=== PATIENT | female | born 1950 | race African-American/Black ===

== ENCOUNTER 2023-02-09 17:51 | Emergency (ER) | payer SELFPAY ==
--- NOTE | ~2023-02-09 | XR_ITS ---
EXAMINATION: XR ankle LT min 3V DATE: 02/09/2023 19:09 INDICATION: Left ankle pain post fall TECHNIQUE: Anteroposterior, oblique, mortise, and lateral views of the left ankle were obtained. COMPARISON: None. FINDINGS: Chronic left hindfoot arthrodesis with fusion across the subtalar, calcaneocuboid and talonavicular j oints. There is a prominent corticated ossicle along the anterolateral margin of the tip of the later al malleolus which could represent either a chronic nonunited avulsion fracture fragment or heterotop ic ossification related to prior ligament sprain. There appears to be osseous fusion across the synde smosis at the distal tibia and fibula. No acute fracture identified. Polyarticular osteoarthritis, mi ld to moderate severity at the ankle joint and at multiple joints in the midfoot. There is prominent soft tissue swelling about the ankle and over the dorsum of the mid and hindfoot. Increased density a nterior to the tibiotalar joint line suggesting presence of an ankle joint effusion. IMPRESSION: 1. Possible left ankle joint effusion with no evident acute osseous abnormality. 2. Chronic left hindfoot arthrodesis. 3. 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 4. 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 Reviewed, dictated and finalized at location A. IMPRESSION: 1. Possible left ankle joint effusion with no evident acute osseous abnormality . 2. Chronic left hindfoot arthrodesis. 3. Chronic nonunited avulsion fracture of the tip of the lateral malleolus vers us heterotopic ossicles related to chronic lateral ankle sprain. 4. 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
[2023-02-09 18:12] VITALS: BP 233/108; PULSE 102; RESP 18; TEMP 36.7; O2SAT 96
--- NOTE | 2023-02-09 19:00 | ED.EXTPRO ---
HPI - Extremity Problem General Chief complaint: Extremity Problem,Nontraumatic Stated complaint: left leg pain Time Seen by Provider: 02/09/23 18:11 History of Present Illness HPI Narrative: Patient is a 73-year-old female presenting with left ankle pain. 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 States that she has had worsening pain in the ankle for many years. States that she has been concerned that she has postpolio syndrome so she has not gone to see a doctor because she has been scared. States that its been many years since she seen a doctor. States that her pain has been worsening over the last week to the point that it is difficult for her to bear weight on the ankle. States that she had a fall earlier so she came in for evaluation. She denies swelling or redness of her legs. She denies fevers or chills. Denies systemic symptoms. States that she does also have gout in this ankle and has been taking Tylenol and ibuprofen with some relief. Related Data Allergies Allergy/AdvReac Type Severity Reaction Status Date / Time No Known Allergies Allergy Verified 02/09/23 17:52 Review of Systems Review of Systems: All systems reviewed & are unremarkable except as noted in HPI and below Exam Narrative: GENERAL: Well-appearing and in no acute distress. Pleasant and cooperative HEAD: Normocephalic, atraumatic. EYES: PERRLA and EOMI. ENT: No gross abnormalities NECK: Supple. CHEST: No respiratory distress. HEART: Regular rate and rhythm. . Normal peripheral pulses. ABDOMEN: Nondistended EXTREMITIES: Left leg is shortened and smaller in comparison to the right which is baseline, no calf swelling or redness, DP pulses are 2+ bilaterally, tenderness over left lateral malleolus SKIN: Warm, dry, no rash. NEURO: No focal deficits. Alert and oriented x3. PSYCH: Normal mood and affect. Course Vital Signs Vital signs: Vital Signs Temperature 98.0 F 02/09/23 18:12 Pulse Rate 102 H 02/09/23 18:12 Respiratory Rate 18 02/09/23 18:12 Blood Pressure 233/108 H 02/09/23 18:12 Pulse Oximetry 96 02/09/23 18:12 Oxygen Delivery Room Air 02/09/23 18:12 Temperature 98.0 F 02/09/23 18:12 Pulse Rate 87 02/09/23 20:58 Respiratory Rate 17 02/09/23 20:58 Blood Pressure 220/97 H 02/09/23 20:58 Pulse Oximetry 100 02/09/23 20:58 Oxygen Delivery Room Air 02/09/23 18:12 MDM - Extremity (Nontraumatic) MDM Narrative Medical decision making narrative: Patient is a 73-year-old female presenting with left foot pain. Vitals are stable. Exam remarkable for the above. Patient states that she has chronic pain in this ankle but it has been worsening she is worried because she fell earlier. X-ray shows left ankle joint effusion and arthritis. There are no acute osseous abnormalities. Discussed the findings with the patient and advised Tylenol and ibuprofen for pain control. Will provide crutches to keep weight off of the foot. Advise close primary care and orthopedic follow-up. Appropriate return precautions given. Patient voiced understanding and is agreeable with plan. Discharged in stable condition. Differential Diagnosis Differential diagnosis: Likely other (Ankle fracture, ankle pain, ankle effusion, gout, arthritis) Medical Records Attestation: I reviewed the patient's medical records. Imaging Data Radiologist's impression: ITS Impressions Ankle X-Ray 02/09/23 19:36 IMPRESSION: 1. Possible left ankle joint effusion with no evident acute osseous abnormality. 2. Chronic left hindfoot arthrodesis. 3. 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 4. 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 Critical Care Time Critical Care Time Critical Care Time: No Discharge Plan Discharge Clinical Impression:
[2023-02-09 19:31] VITALS: BP 165/124; PULSE 80; RESP 17; O2SAT 98
[2023-02-09] MEDS: KETOROLAC 30 MG/ML VIAL (*BKC) IM (19:39)
[2023-02-09 20:58] VITALS: BP 220/97; PULSE 87; RESP 17; O2SAT 100
== END 2023-02-09 20:55 | disposition home or self-care (01) ==
PROVIDERS: Emergency Provider Emergency Medicine
DX: M25.472 Effusion, left ankle (principal)
CPT/HCPCS: 73610; 96372; 99283; J1885